=== PATIENT | female | born 1965 | race Caucasian/White ===

== ENCOUNTER 2016-08-30 18:13 | Emergency (ER) | payer OTHER ==
[~2016-08-30] VITALS: Ht 162.6 cm; Wt 105.0 kg
[2016-08-30] MEDS ORDERED: MULTIVITAMIN1 EAC2 PO (20:21)
[2016-08-30] MEDS ORDERED: VITAMIN B-12 PO (20:24)
[2016-08-30] MEDS ORDERED: VITAMIN D34000 UNIT PO (20:25)
[2016-08-30 21:11] VITALS: BP 110/81
== END 2016-08-30 21:19 | disposition home or self-care (01) ==
LOC: EME 18:13
PROC: 2W39XYZ Immobilization of Left Upper Extremity using Other Device (ICD-10-PCS; principal; 2016-08-30)
DX: S40.012A Contusion of left shoulder, initial encounter (principal); S50.12XA Contusion of left forearm, initial encounter; S60.212A Contusion of left wrist, initial encounter; W07.XXXA Fall from chair, initial encounter; F17.200 Nicotine dependence, unspecified, uncomplicated; Z88.6 Allergy status to analgesic agent; Z88.0 Allergy status to penicillin
CPT/HCPCS: 73030; 73080; 73110; 99281; 99284